=== PATIENT | male | born 1980 ===

== ENCOUNTER 2021-03-16 01:27 | Emergency (ER) | payer OTHER ==
[~2021-03-16] VITALS: Ht 165.1 cm; Wt 79.4 kg
[~2021-03-16 01:27] MED LIST: NAPR-243 PO
[2021-03-16] MEDS ORDERED: TETANUS,DIPTH,PERTUSS P/F (BOOSTRIX) 0.5 ML VIAL IM ONE (02:15)
[2021-03-16] MEDS ORDERED: LIDOCAINE 1% INJ 20 ML 20 ML VIAL INJ ONE (02:30)
--- NOTE | 2021-03-16 03:14 | ED Upper Extremity ---
General Chief Complaint: Laceration Stated Complaint: LAC ON RT HAND Nursing Triage Note: TO ED VIA POV TO ROOM 6 WITH C/O LAC TO RIGHT HAND FROM USING [employer] AT WORK. Source: patient Exam Limitations: no limitations History of Present Illness Date Seen by Provider: Mar 16, 2021 Time Seen by Provider: 02:10 Allergies and Home Medications Allergies Coded Allergies: No Known Allergies (Unverified Allergy, Mild, 04/01/09) Patient Home Medication List Naproxen (Naprosyn) 500 Mg Tablet, 1 EACH PO TID Prescribed by: ARNOLD SANDHU on 04/02/09 0129 Past Ibarvpw-Tvfloz-Bknebs Hx Patient Social History Tobacco Use?: No Substance use?: No Alcohol Use?: Yes Alcohol Frequency: Once in a while Past Medical History Surgery/Hospitalization HX: TONSILECTOMY Physical Exam Vital Signs Vital Signs - First Documented 03/16/21 01:43 Temp 36.7 Pulse 82 Resp 18 B/P (MAP) 124/84 (97) Pulse Ox 97 O2 Delivery Room Air Capillary Refill : Less Than 3 Seconds Height, Weight, BMI Height: '" Weight: lbs. oz. kg; 29.00 BMI Method: Procedures/Interventions Wound Location: Upper Extremities Other Wound Location Dorsum of the right hand Wound Length (cm): 3.5 Wound's Depth, Shape: linear, sub Q Wound Explored: contaminated Irrigated w/ Saline (ccs): 100 Betadine Prep?: Yes Anesthesia: 1% Lidocaine Volume Anesthetic (ccs): 3 Wound Debrided: minimal Suture: Prolene Suture Size: 4-0 Number of Sutures: 4 Layer Closure?: 1 Sterile Dressing Applied?: Yes Progress/Results/Core Measures Results/Orders My Orders Orders - MARION PEREZ MD Dipht,Radha(Acell),Tet Adult (Boostrix (03/16/21 02:15) Lidocaine 1% Inj 20 Ml (Xylocaine 1% Inj (03/16/21 02:30) Medications Given in ED Current Medications Medications Dose Ordered Sig/Davi Route Start Time Stop Time Status Last Admin Dose Admin Lidocaine HCl 20 ml ONCE ONCE INJ 03/16/21 02:30 03/16/21 02:31 DC 03/16/21 02:35 20 ML Vital Signs/I&O 03/16/21 01:43 Temp 36.7 Pulse 82 Resp 18 B/P (MAP) 124/84 (97) Pulse Ox 97 O2 Delivery Room Air Blood Pressure Mean: 97 Departure Impression Primary Impression: Laceration of right hand Qualified Codes: S61.411A - Laceration without foreign body of right hand, initial encounter Disposition: HOME, SELF-CARE Condition: Improved Departure-Patient Inst. Decision time for Depature: 03:05 Referrals: [facility] (PCP/Family) Primary Care Physician Patient Instructions: Laceration Repair With Stitches ED Add. Discharge Instructions: Keep the wound clean and dry except for normal hand washing and showering. Do not submerge until after sutures are removed. Cover when active, at work, or in dirty environments. Consider covering when sleeping as well to prevent disruption of the sutures. When awake and at rest you may leave the wound open to air. If the wound sticks to dressings, you may apply a small amount of Vaseline or antibiotic ointment to prevent sticking. Monitor for signs of infection such as increasing redness, increasing swelling, puslike drainage, or fever. Return to care promptly if you notice these symptoms. Return to ER or occupational health in 7 to 10 days to have sutures removed. Tylenol (acetaminophen) and/or ibuprofen may be used for pain if needed. Call with questions or concerns. Return to the ER if you have any other concerning symptoms. All discharge instructions reviewed with patient and/or family. Voiced understanding. MARION PEREZ MD Mar 16, 2021 03:14
[2021-03-16 03:20] VITALS: BP 124/84
== END 2021-03-16 03:20 | disposition home or self-care (01) ==
LOC: EDUNIT# 01:27 → ER 01:34
DX: S61.411A Laceration without foreign body of right hand, initial encounter (principal); Z23 Encounter for immunization; W29.0XXA Contact with powered kitchen appliance, initial encounter; Y92.59 Other trade areas as the place of occurrence of the external cause; Y99.0 Civilian activity done for income or pay
CPT/HCPCS: 12013; 90715

== ENCOUNTER 2022-08-17 10:44 | Emergency (ER) | payer OTHER ==
[~2022-08-17] VITALS: Ht 165 cm; Wt 80.0 kg
--- NOTE | 2022-08-17 11:14 | ED Abdominal Pain ---
General Chief Complaint: Abdominal/GI Problems Stated Complaint: ABD PAIN Nursing Triage Note: PT AMB TO RM 9 PT CO OF SEVERE ABD PAIN THAT HAS WOKEN HIM UP THIS AM. 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 RATES PAIN 8/10 AND IS HAVING SOME NAUSEA. DENIES DIFF W BOWELS OR BLADDER Source of Information: Patient Exam Limitations: No Limitations History of Present Illness Date Seen by Provider: Aug 17, 2022 Time Seen by Provider: 10:58 Initial Comments 42-year-old male presents to the ED with complaints of right upper quadrant abdominal pain starting this morning which awoke him from sleep. Describes pain as stabbing. Reports mild nausea, no vomiting. Denies fevers, chest pain, shortness of air, vomiting, diarrhea, dysuria. Last bowel movement was last night and normal. Has not had any abdominal surgeries. Denies any past medical history, does not take any medications. Severity/Quality: Stabbing Location: RUQ Radiation: No Radiation Allergies and Home Medications Allergies Coded Allergies: No Known Allergies (Unverified Allergy, Mild, 04/01/09) Patient Home Medication List Home Medication List Reviewed: Yes Naproxen (Naprosyn) 500 Mg Tablet, 1 EACH PO TID Prescribed by: ARNOLD SANDHU on 04/02/09 0129 Review of Systems Review of Systems Constitutional: see HPI Past Hyiylba-Qobpkl-Rfuitf Hx Patient Social History Tobacco Use?: No Substance use?: No Alcohol Use?: Yes Alcohol type: Beer Alcohol Frequency: Several times a month Pt feels they are or have been: No Immunizations Up To Date Influenza Vaccine Up-to-Date: No; Not Current Past Medical History Surgery/Hospitalization HX: TONSILECTOMY Surgeries: No (None reported) Respiratory: No Cardiac: Yes High Cholesterol Neurological: No Genitourinary: No Gastrointestinal: No Musculoskeletal: No Endocrine: No HEENT: No Cancer: No Psychosocial: No Physical Exam Vital Signs Vital Signs - First Documented 08/17/22 10:53 Temp 36.5 Pulse 81 Resp 16 B/P (MAP) 124/87 (99) Pulse Ox 97 Capillary Refill : Less Than 3 Seconds Height/Weight/BMI Height: '" Weight: lbs. oz. kg; 29.00 BMI Method: General Appearance: WD/WN, no apparent distress Neck: supple, normal inspection Respiratory: lungs clear, normal breath sounds, no respiratory distress, no accessory muscle use Cardiovascular: regular rate, rhythm, no edema, no gallop, no JVD, no murmur Gastrointestinal: normal bowel sounds, soft, no organomegaly, no pulsatile mass, tenderness (Right upper quadrant) Extremities: normal range of motion, normal inspection Back: normal inspection Neurologic/Psychiatric: alert, normal mood/affect Skin: normal color, warm/dry Procedures/Interventions Suture Size: 4-0 Progress/Results/Core Measures Results/Orders Lab Results Laboratory Tests Test 08/17/22 11:10 08/17/22 11:15 Range/Units Urine Color YELLOW Urine Clarity CLEAR Urine pH 6.5 5-9 Urine Specific [place] 1.020 1.016-1.022 Urine Protein NEGATIVE NEGATIVE Urine Glucose (UA) NEGATIVE NEGATIVE Urine Ketones NEGATIVE NEGATIVE Urine Nitrite NEGATIVE NEGATIVE Urine Bilirubin NEGATIVE NEGATIVE Urine Urobilinogen 0.2 < = 1.0 MG/DL Urine Leukocyte Esterase NEGATIVE NEGATIVE Urine RBC (Auto) 2+ H NEGATIVE Urine RBC 2-5 H /HPF Urine WBC NONE /HPF Urine Crystals NONE /LPF Urine Bacteria TRACE /HPF Urine Casts NONE /LPF Urine Mucus NEGATIVE /LPF Urine Culture Indicated NO White Blood Count 7.4 4.3-11.0 10^3/uL Red Blood Count 4.65 4.30-5.52 10^6/uL Hemoglobin 14.7 13.3-17.7 g/dL Hematocrit 42 40-54 % Mean Corpuscular Volume 90 80-99 fL Mean Corpuscular Hemoglobin 32 25-34 pg Mean Corpuscular Hemoglobin Concent 35 32-36 g/dL Red Cell Distribution Width 12.1 10.0-14.5 % Platelet Count 273 130-400 10^3/uL Mean Platelet Volume 10.0 9.0-12.2 fL Immature Granulocyte % (Auto) 0 % Neutrophils (%) (Auto) 55 42-75 % Lymphocytes (%) (Auto) 34 12-44 % Monocytes (%) (Auto) 8 0-12 % Eosinophils (%) (Auto) 3 0-10 % Basophils (%) (Auto) 1 0-10 % Neutrophils # (Auto) 4.1 1.8-7.8 10^3/uL Lymphocytes # (Auto) 2.5 1.0-4.0 10^3/uL Monocytes # (Auto) 0.6 0.0-1.0 10^3/uL Eosinophils # (Auto) 0.2 0.0-0.3 10^3/uL Basophils # (Auto) 0.1 0.0-0.1 10^3/uL Immature Granulocyte # (Auto) 0.0 0.0-0.1 10^3/uL Sodium Level 139 135-145 MMOL/L Potassium Level 3.8 3.6-5.0 MMOL/L Chloride Level 105 98-107 MMOL/L Carbon Dioxide Level 24 21-32 MMOL/L Anion Gap 10 5-14 MMOL/L Blood Urea Nitrogen 11 7-18 MG/DL Creatinine 0.70 0.60-1.30 MG/DL Estimat Glomerular Filtration Rate 118 BUN/Creatinine Ratio 16 Glucose Level 107 H 70-105 MG/DL Calcium Level 9.4 8.5-10.1 MG/DL Corrected Calcium 9.0 8.5-10.1 MG/DL Total Bilirubin 0.3 0.1-1.0 MG/DL Aspartate Amino Transf (AST/SGOT) 21 5-34 U/L Alanine Aminotransferase (ALT/SGPT) 39 0-55 U/L Alkaline Phosphatase 86 40-136 U/L Total Protein 7.2 6.4-8.2 GM/DL Albumin 4.5 3.2-4.5 GM/DL Amylase Level 68 25-125 U/L Lipase 47 8-78 U/L My Orders Orders - ADRI PARSONS APRN Ua Culture If Indicated (08/17/22 10:55) Comprehensive Metabolic Panel (08/17/22 10:59) Lipase (08/17/22 10:59) Amylase (08/17/22 10:59) Cbc With Automated Diff (08/17/22 10:59) Ct Abdomen/Pelvis W (08/17/22 11:07) Iohexol Injection (Omnipaque 350 Mg/Ml 1 (08/17/22 12:00) Received Contrast (Hold Metformin- Contr (08/17/22 12:00) Ns (Ivpb) (Sodium Chloride 0.9% Ivpb Bag (08/17/22 12:00) Medications Given in ED Current Medications Medications Dose Ordered Sig/Davi Route Start Time Stop Time Status Last Admin Dose Admin Iohexol 100 ml ONCE ONCE IV 08/17/22 12:00 08/17/22 12:01 DC 08/17/22 11:53 80 ML Sodium Chloride 100 ml ONCE ONCE IV 08/17/22 12:00 08/17/22 12:01 DC 08/17/22 11:53 80 ML Vital Signs/I&O 08/17/22 08/17/22 10:53 12:47 Temp 36.5 Pulse 81 78 Resp 16 16 B/P (MAP) 124/87 (99) 112/79 Pulse Ox 97 97 Blood Pressure Mean: 99 Progress Progress Note #1: Time: Progress Note Patient seen and evaluated, resting comfortably bed, no acute distress. Based on exam and symptoms, work-up initially including CBC, CMP, amylase, lipase, UA, CT abdomen pelvis. Patient declined pain or nausea medicine at this time. Progress Note #2: Time: Progress Note Labs and CT reviewed. CBC grossly normal, WBC normal 7.4, hemoglobin normal at 14.7. CMP grossly normal, potassium 3.8, creatinine 0.70, glucose slightly elevated 107, AST 21, ALT 39. Urine negative for nitrates, leukocytes, WBC, bacteria, 2+ RBCs. CT negative for any acute abnormalities. Results discussed with patient. He reports that his pain is almost gone. Offered a GI cocktail, patient declined. Patient instructed to follow-up with primary care provider regarding blood in urine. Discharge instructions and return precautions provided. Diagnostic Imaging Diagonstic Imaging: CT Plain Films/CT/US/NM/MRI: abdomen, pelvis Comments [facility]. [place], [place] NAME: ANA [facility]ULASAN [facility] REC#: [id number] PT STATUS: DEP ER : [id number] PHYSICIAN: ADRI PARSONS APRN ADMIT DATE: 08/17/22/ER Signed Date of Exam:08/17/22 CT ABDOMEN/PELVIS W PROCEDURE: CT abdomen and pelvis with contrast. TECHNIQUE: Multiple contiguous axial images were obtained through the abdomen and pelvis after administration of intravenous contrast. Auto Exposure Controls were utilized during the CT exam to meet ALARA standards for radiation dose reduction. All CT scans use one or more of the following dose optimizing techniques: automated exposure control, MA and/or KvP adjustment based on patient size and exam type or iterative reconstruction. INDICATION: Pain and nausea. No priors. The air-containing appendix well visualized and normal. There is no diverticulitis. There were no findings of bowel obstruction. There is a simple benign left renal cortical cyst. There are no radiopaque urinary tract calculi. There is no hydroureteronephrosis. Renal parenchymal density and enhancement appeared unremarkable. No perinephric stranding or edema. The urinary bladder normal. There is no ascites, abscess, hematoma or acute fluid collection. No small or large bowel wall thickening. No perienteric or pericolonic edema. There are no radiopaque biliary calculi. There is no ductal dilatation. The gallbladder unremarkable. The pancreas its duct in the peripancreatic fat appeared normal. Spleen and adrenals unremarkable. There is mild heterogeneous fatty infiltration of liver with sparing of a segment of the right hepatic lobe. No hepatic mass effect or acute appearing abnormality. The lung bases and bony structures were nonacute. IMPRESSION: No obstructive features, inflammatory processes or acute appearing abnormalities. Dictated by: Dictated on workstation # [id number] Dict: 08/17/22 1205 Trans: 08/17/22 1646 [id number] Interpreted by: GHISLAINE GRANDA Electronically signed by: GHISLAINE GRANDA 08/17/22 1646 Departure Impression Primary Impression: Abdominal pain Qualified Codes: R10.11 - Right upper quadrant pain Disposition: 01 HOME, SELF-CARE Condition: Stable Departure-Patient Inst. Decision time for Depature: 12:23 Referrals: [facility] (PCP/Family) Primary Care Physician Patient Instructions: Gastritis (DC) Add. Discharge Instructions: There was blood in your urine, follow-up with your primary care provider for repeat urinalysis to evaluate this. You may try [id number] Tums, Pepcid, or omeprazole for symptoms. Return for severe pain, recurrent vomiting, fever, or any other new, concerning, or worsening symptoms. All discharge instructions reviewed with patient and/or family. Voiced understanding. ADRI PARSONS APRN Aug 17, 2022 11:14
[2022-08-17 11:16] LABS: BILIRUBIN,URINE NEGATIVE (NEGATIVE); CLARITY,URINE CLEAR; COLOR,URINE YELLOW; GLUCOSE, URINE (UA) NEGATIVE (NEGATIVE); KETONES,URINE NEGATIVE (NEGATIVE); LEUKOCYTE ESTERASE ,URINE NEGATIVE (NEGATIVE); NITRITE,URINE NEGATIVE (NEGATIVE); PH,URINE 6.5 (5-9); PROTEIN,URINE NEGATIVE (NEGATIVE)
[2022-08-17 11:21] LABS: BASOPHILS # (AUTO) 0.1 10^3/uL (0.0-0.1); BASOPHILS % (AUTO) 1 % (0-10); EOSINOPHILS # (AUTO) 0.2 10^3/uL (0.0-0.3); EOSINOPHILS % (AUTO) 3 % (0-10); HEMATOCRIT 42 % (40-54); HEMOGLOBIN 14.7 g/dL (13.3-17.7); LYMPHOCYTES # (AUTO) 2.5 10^3/uL (1.0-4.0); LYMPHOCYTES % (AUTO) 34 % (12-44); MEAN CORPUSCULAR HEMOGLOBIN 32 pg (25-34); MEAN CORPUSCULAR HGB CONC 35 g/dL (32-36); MEAN CORPUSCULAR VOLUME 90 fL (80-99); MONOCYTES # (AUTO) 0.6 10^3/uL (0.0-1.0); MONOCYTES % (AUTO) 8 % (0-12); NEUTROPHILS # (AUTO) 4.1 10^3/uL (1.8-7.8); NEUTROPHILS % (AUTO) 55 % (42-75); PLATELET COUNT 273 10^3/uL (130-400); WHITE BLOOD COUNT 7.4 10^3/uL (4.3-11.0)
[2022-08-17 11:29] LABS: BACTERIA,URINE TRACE /HPF
[2022-08-17 11:31] LABS: ALBUMIN 4.5 GM/DL (3.2-4.5); POTASSIUM 3.8 MMOL/L (3.6-5.0)
[2022-08-17 11:33] LABS: CALCIUM 9.4 MG/DL (8.5-10.1)
[2022-08-17 11:34] LABS: TOTAL PROTEIN 7.2 GM/DL (6.4-8.2)
[2022-08-17 11:36] LABS: BILIRUBIN,TOTAL 0.3 MG/DL (0.1-1.0)
[2022-08-17 11:37] LABS: CREATININE SERUM 0.7 MG/DL (0.60-1.30)
[2022-08-17] MEDS ORDERED: IOHEXOL 350 MG/ML 100 ML (OMNIPAQUE 350) VIAL IV ONE (12:00)
[2022-08-17] MEDS ORDERED: HOLD METFORMIN - RECEIVED CONTRAST 20 ML VIAL IV SCH (12:00)
[2022-08-17] MEDS ORDERED: NS 100 ML (IVPB) BAG IV ONE (12:00)
--- NOTE | 2022-08-17 12:13 | Diagnostic Imaging Report ---
PROCEDURE: CT abdomen and pelvis with contrast. TECHNIQUE: Multiple contiguous axial images were obtained through the abdomen and pelvis after administration of intravenous contrast. Auto Exposure Controls were utilized during the CT exam to meet ALARA standards for radiation dose reduction. All CT scans use one or more of the following dose optimizing techniques: automated exposure control, MA and/or KvP adjustment based on patient size and exam type or iterative reconstruction. INDICATION: Pain and nausea. No priors. The air-containing appendix well visualized and normal. There is no diverticulitis. There were no findings of bowel obstruction. There is a simple benign left renal cortical cyst. There are no radiopaque urinary tract calculi. There is no hydroureteronephrosis. Renal parenchymal density and enhancement appeared unremarkable. No perinephric stranding or edema. The urinary bladder normal. There is no ascites, abscess, hematoma or acute fluid collection. No small or large bowel wall thickening. No perienteric or pericolonic edema. There are no radiopaque biliary calculi. There is no ductal dilatation. The gallbladder unremarkable. The pancreas its duct in the peripancreatic fat appeared normal. Spleen and adrenals unremarkable. There is mild heterogeneous fatty infiltration of liver with sparing of a segment of the right hepatic lobe. No hepatic mass effect or acute appearing abnormality. The lung bases and bony structures were nonacute. IMPRESSION: No obstructive features, inflammatory processes or acute appearing abnormalities. Dictated by: Dictated on workstation # [id number]
[2022-08-17 12:47] VITALS: BP 112/79
== END 2022-08-17 12:47 | disposition home or self-care (01) ==
LOC: EDUNIT# 10:44 → ER 10:46
DX: R10.11 Right upper quadrant pain (principal); R11.0 Nausea; R73.9 Hyperglycemia, unspecified
CPT/HCPCS: 36415; 74177; 80053; 81000; 82150; 83690; 85025